=== PATIENT | male | born 1965 | race Caucasian/White ===

== ENCOUNTER 2021-04-01 10:55 | Emergency (ER) | payer OTHER, SELFPAY ==
[2021-04-01] VITALS (9 sets, daily range): BP systolic 135–146; BP diastolic 86–88; PULSE 61–82; RESP 16; TEMP 37; O2SAT 93–97; BMI 46.2
[2021-04-01 11:56] LABS: RBC Urine None Seen (0-5/HPF)
[2021-04-01 11:57] LABS: Appearance Urine UA CLEAR; Bilirubin Urine UA 2+ (NEGATIVE); Color Urine UA YELLOW; Glucose Urine UA TRACE g/dL (Negative); Ketones Urine UA 1+ (NEGATIVE); Leukocyte Esterase Urine UA NEGATIVE (NEGATIVE); Nitrite Urine UA NEGATIVE (Negative); Occult Blood Urine UA NEGATIVE (Negative); Protein Urine UA 1+ (Negative); Specific Gravity Urine UA >=1.030 (1.000-1.035); Urobilinogen Urine UA 0.2 E.U./dL (0.2)
--- NOTE | 2021-04-01 12:14 | PC.NURSE ---
pt states he has had back pain for about 3 weeks, given antibiotics for kidney infection, not better.
[2021-04-01 12:34] LABS: Ictotest Urine Positive (Negative)
[2021-04-01 12:35] LABS: Add Manual Diff / Slide Review NO; Basophils Absolute Auto 0 /uL (0-100); Basophils Percent Auto 0.8 % (0-2); Eosinophils Absolute Auto 100 /uL (0-450); Eosinophils Percent Auto 2.2 % (2-4); Hematocrit 43.4 % (41-53); Hemoglobin 14.9 g/dL (13.5-17.5); Lymphocytes Absolute Auto 2100 /uL (1100-4500); Lymphocytes Percent Auto 39.8 % (25-40); Mean Corpuscular HGB Conc 34.4 % (30-36); Mean Corpuscular Hemoglobin 32.5 PG (26-34); Mean Corpuscular Volume 94.6 fL (80-100); Monocytes Absolute Auto 700 /uL (0-900); Monocytes Percent Auto 13.8 % (3-14); Neutrophils Absolute Auto 2300 /uL (1500-7000); Neutrophils Percent Auto 43.4 % (50-75); Platelet Count 192 X10^3/uL (150-400); Red Blood Cell Count 4.59 X10^6/uL (4.5-5.9); White Blood Cell Count 5.3 X10^3/uL (4.5-11.0)
[2021-04-01 12:35] LABS: Bacteria Urine Few (2-10); Culture Indicated Urine Cult Not Indicated; Hyaline Casts Urine 10-30/LPF; Squamous Epithelial Cell Urine 1-5 /HPF (0-5/HPF); WBC Urine 1-5/HPF (0-5/HPF)
[2021-04-01 13:03] LABS: Alanine Aminotransferase 120 IU/L (<50); Albumin 4.4 g/dL (3.5-5.0); Albumin Globulin Ratio 1.5 (1.0-2.8); Alkaline Phosphatase 73 U/L (38-126); Aspartate Aminotransferase 90 IU/L (17-59); Bilirubin Total 0.7 mg/dL (0.2-1.3); Blood Urea Nitrogen 16 mg/dL (9-20); Calcium 10.3 mg/dL (8.4-10.2); Carbon Dioxide 34 mmol/L (22-32); Chloride 93 mmol/L (98-107); Estimated Glomerular Filt Rate > 60.0 mL/min (>60); Glucose 203 mg/dL (70-100); HEMOLYSIS < 15 (0-50); Lipase 367 U/L (23-300); Potassium 3.3 mmol/L (3.4-5.1); Sodium 136 mmol/L (137-145); Total Protein 7.4 g/dL (6.3-8.2)
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
--- NOTE | 2021-04-01 13:24 | DI.US.S_ITS ---
PROCEDURE: US ABDOMEN LIMITED INDICATIONS: RUQ/RIGHT FLANK PAIN TECHNIQUE: Real-time focused scanning was performed of the abdomen, with image documentation. COMPARISON: None. FINDINGS: The liver demonstrates prominent size. The liver demonstrates generalized moderately increased echogenicity. This decreases ultrasound sensitivity for detection of hepatic masses. Numerous nonmobile gallstones are seen. The gallbladder wall is not thickened, measuring 3 mm or less. No specific pericholecystic fluid is seen. The sonographic Mills sign is positive. There is no biliary dilatation, the common bile duct measures 4-5 mm. No significant pancreatic abnormality is seen on these images. The visualized right kidney is unremarkable, without hydronephrosis. IMPRESSION: Numerous nonmobile gallstones are seen within the gallbladder. There is also a positive sonographic Mills sign. No additional sonographic signs of cholecystitis are seen. No biliary dilatation is seen. Please correlate with physical examination findings, patient presentation, and laboratory values. The liver demonstrates increased echogenicity. This finding is nonspecific, yet it is most commonly attributed to fatty infiltration. Dictated by: Dimitry Fuentes M.D. on 04/01/2021 at 12:59 Approved by: Dimitry Fuentes M.D. on 04/01/2021 at 13:00
[2021-04-01] MEDS: KETOROLAC 30 MG/ML VIAL IV (13:28)
== END 2021-04-01 15:31 | disposition home or self-care (01) ==
PROVIDERS: Emergency Provider Emergency Medicine; PCP Family Medicine
DX: K80.20 Calculus of gallbladder without cholecystitis without obstruction (principal); R79.89 Other specified abnormal findings of blood chemistry; R11.2 Nausea with vomiting, unspecified
CPT/HCPCS: 36415; 76705; 80053; 81001; 81003; 83690; 85025; 96374; 99284; J1885

== ENCOUNTER → 2022-03-03 11:02 | Outpatient (CLI) | payer OTHER, SELFPAY ==
[2022-03-03 11:57] LABS: COVID19 -Nasal RAPID Negative (Negative)
== END ==
PROVIDERS: PCP Family Medicine; Visit Provider Surgery
DX: Z20.822 Contact with and (suspected) exposure to COVID-19 (principal)
CPT/HCPCS: 87635; C9803

== ENCOUNTER 2025-09-17 17:04 | Emergency (ER) | payer SELFPAY ==
[2025-09-17 18:08] VITALS: BP 215/107; PULSE 105; RESP 17; TEMP 36.6; O2SAT 98
--- NOTE | 2025-09-17 18:12 | DI.US.S_ITS ---
PROCEDURE: US SCROTUM INDICATIONS: scrotal pain TECHNIQUE: Real-time scanning was performed of the scrotum and testicles, with image documentation. Color and pulse Doppler interrogation was performed of both testicles. COMPARISON: None. FINDINGS: Right: Testicle is normal in size at 4.8 x 2.1 x 3.7 cm, and homogenous in echotexture. Epididymis is normal in overall size and morphology. No hydrocele or varicoceles. Overlying scrotal skin is normal in thickness. Left: Absent Doppler: Color and pulse Doppler demonstrate normal and symmetric arterial flow in both testicles. IMPRESSION: No evidence of torsion at time exam. Intermittent torsion cannot be excluded. Dictated by: Maureen Alcantar M.D. on 09/17/2025 at 19:33 Approved by: Maureen Alcantar M.D. on 09/17/2025 at 19:34
--- NOTE | 2025-09-17 18:51 | ED.MALEGU ---
HPI - Male Genitourinary <Carmen Altman PA-C - Last Filed: 09/18/25 12:57> General Chief complaint: Urogenital-Male Stated complaint: uti Time Seen by Provider: 09/17/25 18:12 Source: patient Mode of arrival: Ambulatory History of Present Illness HPI Narrative: 60-year-old MSM male presents to the ED with 5 days of UTI symptoms. Patient was seen in the walk-in clinic in [facility], was given a shot of Rocephin and discharged home without any p.o. antibiotics. Patient is complaining of scrotal pain, nausea, vomiting. Denies flank pain. No history of urolithiasis. Patient has a distant history of testicular cancer, is status post left orchiectomy. Since then, he has had a TURP for urethral stenosis. Patient does not have frequent UTIs. Patient is here with his partner. Denies chest pain, shortness of breath, abdominal pain, flank pain, lightheadedness, dizziness, syncope. Related Data Home Medications ?Medication ?Instructions ?Recorded ?Confirmed amlodipine 5 mg tablet 5 mg PO BID 09/17/25 09/17/25 atenolol 100 mg tablet 100 mg PO DAILY 09/17/25 09/17/25 hydrochlorothiazide 25 mg tablet 25 mg PO DAILY 09/17/25 09/17/25 Held on 09/17/25. Instructions: Held for low potassium losartan 100 mg tablet 100 mg PO DAILY 09/17/25 09/17/25 Previous Rx's ?Medication ?Instructions ?Recorded meloxicam 7.5 mg tablet (Mobic) 7.5 mg PO BID PRN pain #14 tabs 04/01/21 ondansetron HCl 4 mg tablet 4 mg PO Q6H PRN nausea and 04/01/21 (Zofran) vomiting #10 tabs meloxicam 7.5 mg tablet 7.5 mg PO BID PRN pain #10 tabs 09/17/25 nitrofurantoin 100 mg PO Q12H 7 days #14 caps 09/17/25 monohydrate/macrocrystals 100 mg capsule (Macrobid) ondansetron 4 mg disintegrating 4 mg PO Q6H PRN nausea and 09/17/25 tablet vomiting #10 tabs Allergies Allergy/AdvReac Type Severity Reaction Status Date / Time No Known Drug Allergies Allergy Verified 04/01/21 10:57 Review of Systems <Carmen Altman PA-C - Last Filed: 09/18/25 12:57> Constitutional Constitutional: Denies chills, Denies fatigue, Reports fever(s), Denies frequent falls, Denies lethargy and Denies weakness Eyes Eyes: Denies change in vision, Denies eye discharge, Denies irritation and Denies loss of vision ENT Ears, Nose, Mouth, and Throat: Denies change in voice, Denies dizziness, Denies neck pain, Denies sore throat and Denies throat swelling Cardiovascular Cardiovascular: Denies chest pain, Denies irregular heart rhythm, Denies lightheadedness, Denies palpitations, Denies dyspnea, Denies dyspnea on exertion and Denies orthopnea Respiratory Respiratory: Denies cough, Denies dyspnea, Denies dyspnea on exertion and Denies wheezing Gastrointestinal Gastrointestinal: Denies abdominal pain, Denies change in bowel habits, Denies diarrhea, Denies nausea and Denies vomiting Genitourinary Genitourinary: Reports genital pain, Reports dysuria and Reports testicular pain Musculoskeletal Musculoskeletal: Denies neck pain and Denies numbness Integumentary/Breasts Skin/Breast: Denies pruritus, Denies erythema, Denies rash and Denies wounds Neurologic Neurologic: Denies behavioral changes, Denies confusion, Denies dizziness, Denies frequent falls, Denies loss of vision, Denies numbness and Denies weakness Psychiatric Psychiatric: Denies anxiety, Denies behavioral changes, Denies confusion, Denies depression, Denies homicidal ideation and Denies suicidal ideation Endocrine Endocrine: Denies fatigue, Denies flushing and Denies palpitations Hematologic/Lymphatic Hematologic/Lymphatic: Denies easy bruising Allergic/Immunologic Allergic/Immunologic: Denies urticaria, Denies throat swelling and Denies wheezing Patient History <Carmen Altman PA-C - Last Filed: 09/18/25 12:57> Medical History (Updated 09/17/25 @ 21:26 by Concha Frank DO) Hypertension Diabetes Surgical History (Updated 04/01/21 @ 13:28 by Concha Frank DO) History of orchiectomy Social History Smoking Status: Smoker, status unknown Smoking Status: Smoker, status unknown alcohol intake frequency: holidays/special occasions only Exam <Carmen Altman PA-C - Last Filed: 09/18/25 12:57> Initial Vital Signs Initial Vital Signs: Vital Signs Temperature 98 F 09/17/25 18:08 Pulse Rate 105 H 09/17/25 18:08 Respiratory Rate 17 09/17/25 18:08 Blood Pressure 215/107 H 09/17/25 18:08 Pulse Oximetry 98 09/17/25 18:08 Oxygen Delivery Method Room Air 09/17/25 18:08 <Concha Frank DO - Last Filed: 09/22/25 00:22> Initial Vital Signs Initial Vital Signs: Vital Signs Temperature 98 F 09/17/25 18:08 Pulse Rate 105 H 09/17/25 18:08 Respiratory Rate 17 09/17/25 18:08 Blood Pressure 215/107 H 09/17/25 18:08 Pulse Oximetry 98 09/17/25 18:08 Oxygen Delivery Method Room Air 09/17/25 18:08 Course <Carmen Altman PA-C - Last Filed: 09/18/25 12:57> Orders Ordered: Discontinued Medications Hydrocodone Bitart/Acetaminophen (Hydrocodone/Acet 5/325 Prepack) 1 bottle MISC DIRECTED ONE Stop: 09/17/25 21:24 Last Admin: 09/17/25 21:31 Dose: 1 bottle Documented By: ANTONELLA Amlodipine Besylate (Amlodipine 5 Mg Tablet) 5 mg PO NOW ONE Stop: 09/17/25 20:14 Last Admin: 09/17/25 20:17 Dose: 5 mg Documented By: ANTONELLA Atenolol (Atenolol 25 Mg Tablet) 100 mg PO NOW ONE Stop: 09/17/25 20:14 Last Admin: 09/17/25 20:17 Dose: 100 mg Documented By: ANTONELLA Ketorolac Tromethamine (Ketorolac 30 Mg/Ml Vial) 30 mg IM NOW ONE Stop: 09/17/25 20:00 Last Admin: 09/17/25 20:03 Dose: 30 mg Documented By: ANTONELLA Losartan Potassium (Losartan 50 Mg Tablet) 100 mg PO NOW ONE Stop: 09/17/25 20:14 Last Admin: 09/17/25 20:17 Dose: 100 mg Documented By: ANTONELLA Nitrofurantoin Macrocrystals (Nitrofurantoin Er 100 Mg Capsule) 100 mg PO NOW ONE Stop: 09/17/25 21:24 Last Admin: 09/17/25 21:31 Dose: 100 mg Documented By: ANTONELLA Ondansetron HCl (Ondansetron 4 Mg Odt) 4 mg SL NOW ONE Stop: 09/17/25 20:00 Last Admin: 09/17/25 20:02 Dose: 4 mg Documented By: ANTONELLA Ondansetron HCl (Ondansetron 4 Mg Odt Prepack) 1 bottle MISC DIRECTED ONE Stop: 09/17/25 21:24 Last Admin: 09/17/25 21:31 Dose: 1 bottle Documented By: ANTONELLA Vital Signs Vital signs: Vital Signs - 8 hr 09/17/25 18:08 09/17/25 20:07 09/17/25 20:17 Temperature 98 F Pulse Rate 105 H 110 H 110 H Respiratory Rate 17 18 Blood Pressure 215/107 H 227/118 H 227/118 H Pulse Oximetry 98 100 Oxygen Delivery Method Room Air Room Air 09/17/25 20:55 Temperature Pulse Rate 83 Respiratory Rate Blood Pressure 196/103 H Pulse Oximetry 95 Oxygen Delivery Method Room Air <Concha Frank DO - Last Filed: 09/22/25 00:22> Orders Ordered: Discontinued Medications Hydrocodone Bitart/Acetaminophen (Hydrocodone/Acet 5/325 Prepack) 1 bottle MISC DIRECTED ONE Stop: 09/17/25 21:24 Last Admin: 09/17/25 21:31 Dose: 1 bottle Documented By: ANTONELLA Amlodipine Besylate (Amlodipine 5 Mg Tablet) 5 mg PO NOW ONE Stop: 09/17/25 20:14 Last Admin: 09/17/25 20:17 Dose: 5 mg Documented By: ANTONELLA Atenolol (Atenolol 25 Mg Tablet) 100 mg PO NOW ONE Stop: 09/17/25 20:14 Last Admin: 09/17/25 20:17 Dose: 100 mg Documented By: ANTONELLA Ketorolac Tromethamine (Ketorolac 30 Mg/Ml Vial) 30 mg IM NOW ONE Stop: 09/17/25 20:00 Last Admin: 09/17/25 20:03 Dose: 30 mg Documented By: ANTONELLA Losartan Potassium (Losartan 50 Mg Tablet) 100 mg PO NOW ONE Stop: 09/17/25 20:14 Last Admin: 09/17/25 20:17 Dose: 100 mg Documented By: NATONELLA Nitrofurantoin Macrocrystals (Nitrofurantoin Er 100 Mg Capsule) 100 mg PO NOW ONE Stop: 09/17/25 21:24 Last Admin: 09/17/25 21:31 Dose: 100 mg Documented By: ANTONELLA Ondansetron HCl (Ondansetron 4 Mg Odt) 4 mg SL NOW ONE Stop: 09/17/25 20:00 Last Admin: 09/17/25 20:02 Dose: 4 mg Documented By: ANTONELLA Ondansetron HCl (Ondansetron 4 Mg Odt Prepack) 1 bottle MISC DIRECTED ONE Stop: 09/17/25 21:24 Last Admin: 09/17/25 21:31 Dose: 1 bottle Documented By: ANTONELLA Vital Signs Vital signs: Vital Signs - 8 hr 09/17/25 18:08 09/17/25 20:07 09/17/25 20:17 Temperature 98 F Pulse Rate 105 H 110 H 110 H Respiratory Rate 17 18 Blood Pressure 215/107 H 227/118 H 227/118 H Pulse Oximetry 98 100 Oxygen Delivery Method Room Air Room Air 09/17/25 20:55 Temperature Pulse Rate 83 Respiratory Rate Blood Pressure 196/103 H Pulse Oximetry 95 Oxygen Delivery Method Room Air MDM - Male Genitourinary <Carmen Altman PA-C - Last Filed: 09/18/25 12:57> Lab Data Labs: Lab Results 09/17/25 09/17/25 Range/Units 18:15 18:51 Urine Color Yellow Urine Appearance Clear Urine pH 5.5 (4.5-8.0) Ur Specific [place] >=1.030 H (1.000-1.035) Urine Protein 3+ H (Negative) Urine Glucose (UA) Negative (Negative) g/dL Urine Ketones 2+ H (NEGATIVE) Urine Occult Blood 1+ H (Negative) Urine Nitrate Negative (Negative) Urine Bilirubin Negative (NEGATIVE) Urine Urobilinogen 1.0 (0.2) E.U./dL Ur Leukocyte Esterase Negative (NEGATIVE) Urine RBC None seen (0-5/HPF) Urine WBC None seen (0-5/HPF) Ur Squamous Epith Cells None seen (0-5/HPF) Ur Transition Epith Cell None seen (0-5/HPF) Urine Bacteria None seen (None) Ur Culture Indicated? Cult not indicated Vol Urine Centrifuged Low vol <10ml (spun) A Ur Chlamydia DNA (PCR) Not detected N gonorrhoeae DNA (PCR) Not detected MDM Narrative Medical decision making narrative: 60-year-old MSM male presents to the ED with 5 days of UTI symptoms. There is concern for UTI versus urinary retention versus scrotal infections versus STI versus malignancy versus other. Will reassess. <Concha Norma Frank, DO - Last Filed: 09/22/25 00:22> Lab Data Labs: Lab Results 09/17/25 09/17/25 Range/Units 18:15 18:51 Urine Color Yellow Urine Appearance Clear Urine pH 5.5 (4.5-8.0) Ur Specific [place] >=1.030 H (1.000-1.035) Urine Protein 3+ H (Negative) Urine Glucose (UA) Negative (Negative) g/dL Urine Ketones 2+ H (NEGATIVE) Urine Occult Blood 1+ H (Negative) Urine Nitrate Negative (Negative) Urine Bilirubin Negative (NEGATIVE) Urine Urobilinogen 1.0 (0.2) E.U./dL Ur Leukocyte Esterase Negative (NEGATIVE) Urine RBC None seen (0-5/HPF) Urine WBC None seen (0-5/HPF) Ur Squamous Epith Cells None seen (0-5/HPF) Ur Transition Epith Cell None seen (0-5/HPF) Urine Bacteria None seen (None) Ur Culture Indicated? Cult not indicated Vol Urine Centrifuged Low vol <10ml (spun) A Ur Chlamydia DNA (PCR) Not detected N gonorrhoeae DNA (PCR) Not detected MDM Narrative Medical decision making narrative: 60-year-old MSM male presents to the ED with 5 days of UTI symptoms. There is concern for UTI versus urinary retention versus scrotal infections versus STI versus malignancy versus other. Will reassess. Patient signed out to myself by DEBRA Altman. Patient is seen and evaluated by myself. Patient is quite hypertensive did not has a little bit of verbal altercation with spouse in waiting area. Patient has not taken her home medications these were given here in the department. Patient was having UTI symptoms starting was seen at a walk-in clinic given a shot of Rocephin but no oral prescriptions of antibiotics. Risks concerned about taking too much Benadryl and potentially causing urinary tension from patients spouse. Patient has a history of testicular cancer during his sophomore year had an orchiectomy at that time has not noted issues with urination he did have what sounds like a TURP and maybe at urethral stricture that was treated remotely. Patient states he is having somewhat similar symptoms recur. He has had some bloody urine intermittently some new incontinence. Patient states he was told he had signs of infection as well as blood protein and glucose. He states they checked his CEA which is elevated he states he has not had a recent PSA checked. He does not currently have a urologist in his primary care physician is out on maternity leave. Shows no evidence of torsion, right testicle is normal in size homogeneous in echotexture has been in his normal in overall size and morphology no hydrocele or varicocele is overlying scrotal skin is normal in thickness left testicle is absent. Urinalysis shows 3+ protein 2+ ketones 1+ blood negative nitrates, negative for bilirubin, negative for leuks, no white cells, no red cells no bacteria. Urine GC is negative. Patient had Zofran and Toradol here in the department. He took his home doses of losartan, atenolol and amlodipine as well. Discussed with the patient he is feeling much improved his blood pressure is starting to improve as well after taking his medications we will have him follow up with Urology discussed return precautions. We will send a urine culture. Discharge Plan Departure Patient Disposition: Home Clinical Impression: Dysuria, Incontinence Instructions: DI for Dysuria -- Adult Activity Restrictions/Additional Instructions: I do think he would benefit from following with Urology, contact is included below for Dr. Lozano's office. If you have not heard from them in the next 24 hours please reach out to the office. Your urine does not show an obvious infection but you did have a recent antibiotic. I would recommended trying a short course of antibiotics to see if this improves your symptoms. That has also prescription for antinausea medication you can take 1 tablet every 6 hours as needed. You can take meloxicam 1 tablet every 12 hours as needed for pain. This medication is a type of NSAID do not take with ibuprofen, naproxen or Aleve or similar type medications. You were prescribed a few tablets of narcotic pain medication you can take 1-2 of the every 6 hours as needed. This medication can make you sleepy do not drive, perform hazardous activities or make any major decisions while taking it. This medication will make you constipated please take a stool softener once to twice daily until stools are soft and regular. Prescription sent to [facility] in [place]. Please return to the emergency department if you develop fevers, new or worsening abdominal back or flank pain, worsening difficulty with urination or inability to urinate, increasing bleeding, persistent vomiting, any lightheadedness or passing out or other new or concerning changes. Prescriptions: New nitrofurantoin monohyd/m-cryst [Macrobid] 100 mg capsule 100 mg PO Q12H 7 Days Qty: 14 0RF Rx Instructions: must administer with a meal/food meloxicam 7.5 mg tablet 7.5 mg PO BID PRN (Reason: pain) Qty: 10 0RF ondansetron 4 mg tablet,disintegrating 4 mg PO Q6H PRN (Reason: nausea and vomiting) Qty: 10 0RF No Action meloxicam [Mobic] 7.5 mg tablet 7.5 mg PO BID PRN (Reason: pain) Qty: 14 0RF ondansetron HCl [Zofran] 4 mg tablet 4 mg PO Q6H PRN (Reason: nausea and vomiting) Qty: 10 0RF atenolol 100 mg tablet 100 mg PO DAILY amlodipine 5 mg tablet 5 mg PO BID hydrochlorothiazide 25 mg tablet 25 mg PO DAILY losartan 100 mg tablet 100 mg PO DAILY Referrals: Adolfo Lozano DO [Physician, Urology] Porfirio Hernandez MD [Primary Care Provider, Medical] Stand Alone Forms: Patient Portal/API
[2025-09-17 18:54] LABS: Appearance Urine UA CLEAR; Bilirubin Urine UA NEGATIVE (NEGATIVE); Color Urine UA YELLOW; Glucose Urine UA NEGATIVE (Negative); Ketones Urine UA 2+ (NEGATIVE); Leukocyte Esterase Urine UA NEGATIVE (NEGATIVE); Nitrite Urine UA NEGATIVE (Negative); Occult Blood Urine UA 1+ (Negative); Protein Urine UA 3+ (Negative); Specific Gravity Urine UA >=1.030 (1.000-1.035); Urobilinogen Urine UA 1.0 E.U./dL (0.2); pH Urine UA 5.5 (4.5-8.0)
[2025-09-17 19:15] LABS: Culture Indicated Urine Cult Not Indicated
[2025-09-17 20:00] LABS: Urine N gonorrhoeae NOT DETECTED
[2025-09-17 20:02] LABS: Urine Chlamydia NOT DETECTED
[2025-09-17] MEDS: ONDANSETRON 4 MG ODT SL (20:02)
[2025-09-17] MEDS: KETOROLAC 30 MG/ML VIAL IM (20:03)
[2025-09-17 20:07] VITALS: BP 227/118; PULSE 110; RESP 18; O2SAT 100
--- NOTE | 2025-09-17 20:09 | PC.NURSE ---
Patient states has not taken his blood pressure meds today.
[2025-09-17 20:17] VITALS: BP 227/118; PULSE 110
[2025-09-17] MEDS: LOSARTAN 50 MG TABLET 100 MG PO (20:17)
--- NOTE | 2025-09-17 20:19 | PC.NURSE ---
Ordered home med losartan 100mg, atenolol 100mg, and amlodipine 5mg to give in ED.
[2025-09-17 20:55] VITALS: BP 196/103; PULSE 83; O2SAT 95
[2025-09-17] MEDS: ONDANSETRON 4 MG ODT PREPACK 1 BOTTLE MISC (21:31)
[2025-09-17] MEDS: NITROFURANTOIN ER 100 MG CAPSULE PO (21:31)
== END 2025-09-17 21:39 | disposition home or self-care (01) ==
PROVIDERS: Student in an Organized Health Care Education/Training Program; Emergency Provider Emergency Medicine; PCP Family Medicine
DX: N50.82 Scrotal pain (principal); R30.0 Dysuria; R32 Unspecified urinary incontinence; R11.2 Nausea with vomiting, unspecified; Z85.47 Personal history of malignant neoplasm of testis
CPT/HCPCS: 76870; 81001; 87086; 87491; 87591; 93976; 96372; 99283; J1885